=== PATIENT | female | born 1985 | race Native Hawaiian/Other Pacific Islander ===

== ENCOUNTER 2020-05-16 12:58 | Outpatient (CLI) | payer OTHER ==
[~2020-05-16 12:58] MED LIST: ACET-689 PO; ACET7.5T70 PO; ALPR0.5T24 PO; NAPROSYN500 MG PO; VENLAFAXINE37.5 ER PO
== END 2020-05-16 19:24 | disposition home or self-care (01) ==
LOC: LAB 12:58
PROVIDERS: ATTEND Family Medicine
DX: Z20.828 Contact with and (suspected) exposure to other viral communicable diseases (principal)
CPT/HCPCS: 87635; G2023; U0003